=== PATIENT | male | born 1970 | race Caucasian/White ===

== ENCOUNTER 2022-09-03 18:12 | Inpatient (IN) | payer SELFPAY ==
[~2022-09-03 18:12] MED LIST: Iopamidol-370 76% 500 ML 1 ML ONE
[2022-09-03 19:04] LABS: Hemoglobin 5.6 g/dL (14.0-18.0); Mean Corpuscular HGB CONC 30.3 g/dL (32.0-36.0); Mean Corpuscular Hemoglobin 28.1 pg (27.0-31.0); Mean Corpuscular Volume 92.9 fl (78.0-98.0); RBC Distribution Width 17.2 % (11.5-14.5); Red Blood Cell (RBC) Count 1.99 mill/uL (4.70-6.10); White Blood Cell (WBC) Count 2.7 10x3/uL (4.8-10.8)
[2022-09-03 19:06] LABS: #Eosinphils 0.1 thou/uL (0.0-0.7); #Lymphocytes 0.6 thou/uL (1.20-3.40); #Monocytes 0.3 thou/uL (0.11-0.59); #Neutrophils 1.7 thou/uL (1.40-6.50); %Basophils 1.1 % (0.0-1.0); %Eosinophils 2.1 % (0.0-10.0); %Lymphocytes 22.4 % (21.0-51.0); %Monocytes 11.4 % (0.0-10.0); %Neutrophils 62.9 % (42.0-75.0)
[2022-09-03 19:08] LABS: Mean Platelet Volume 9.3 fL (7.4-10.4); Platelet Count 44 10x3/uL (130-400)
[2022-09-03 19:38] LABS: ALT (SGPT) 17 U/L (8-55); AST (SGOT) 24 U/L (5-34); Albumin 2.1 g/dL (3.5-5.0); Alkaline Phosphatase 106 U/L (40-110); Anion Gap 10 mmol/L (10-20); BUN (Urea Nitrogen) 13 mg/dL (8.9-20.6); Bilirubin, Total 1.7 mg/dL (0.2-1.2); Calc. Creatinine Clearance 0 mL/min (70-130); Calcium 7.8 mg/dL (7.8-10.44); Carbon Dioxide 22 mmol/L (22-29); Chloride 111 mmol/L (98-107); Estimated GFR 105; Globulin 4.2 g/dL (2.4-3.5); Glucose 116 mg/dL (70-105); Potassium 3.5 mmol/L (3.5-5.1); Protein, Total 6.3 g/dL (6.0-8.3); Sodium 139 mmol/L (136-145)
[2022-09-03] MEDS ORDERED: Octreotide Acetate 100 MCG/ML VIAL ONE (20:58)
[2022-09-03] MEDS ORDERED: Pantoprazole 40 MG VIAL ONE ×2 (20:58→22:07)
[2022-09-03] MEDS ORDERED: Furosemide 40 MG/4 ML VIAL ONE (20:58)
[2022-09-03] MEDS ORDERED: cefTRIAXone\\ROCEPHIN 1 GM VIAL ONE (20:58)
[2022-09-03] MEDS ORDERED: Octreotide Acetate 50 MCG in Sodium Chloride 0.9% 50 ML IVPB SCH (22:00)
[2022-09-03] MEDS ORDERED: Ondansetron PF 4 MG/2 ML Vial IVP PRN (22:13)
[2022-09-03] MEDS ORDERED: Furosemide 40 MG/4 ML VIAL SLOW IVP SCH (22:15)
[2022-09-03] MEDS ORDERED: Pantoprazole 80 MG in Sodium Chloride 0.9% 100 ML IVPB SCH (22:30)
[2022-09-03] MEDS ORDERED: Morphine 4 MG/ML VIAL ONE (22:35)
[2022-09-03 22:45] LABS: Hemoglobin 6.5 g/dL (14.0-18.0)
[2022-09-03 22:47] LABS: Bacteria/HPF None Seen HPF (None Seen); Bilirubin Negative (Negative); Blood, Urine 3+ (Negative); Clarity Clear (Clear); Glucose, Urine (Dipstick) Normal (Negative); Ketone, Urine Negative (Negative); Leukocyte Negative Leu/uL (Negative); Nitrite Negative (Negative); Protein, Urine (Dipstick) 20 mg/dL (Neg-Trace); RBC/HPF 21-50 HPF (0-3); Specific Gravity, Urine 1.024 (1.002-1.036); Squamous Epithelial 0-3 HPF (0-3)
[2022-09-03 22:56] LABS: INR-International Normal Ratio 1.3; PTT 36.7 sec (22.9-36.1); Prothrombin Time 17.2 sec (12.0-14.7)
[2022-09-03 23:01] LABS: Magnesium 1.6 mg/dL (1.6-2.6)
[2022-09-03 23:55] VITALS: BMI 37.1
[2022-09-04] MEDS: Albumin 25% 25 GM/100 ML BOT IVPB SCH ×4 (00:33→18:09)
[2022-09-04 01:15] LABS: Hemoglobin 6.7 g/dL (14.0-18.0)
[2022-09-04] MEDS: Octreotide Acetate 50 MCG in Sodium Chloride 0.9% 50 ML IVPB SCH ×2 (01:16→08:14)
[2022-09-04] MEDS ORDERED: Morphine 4 MG/ML VIAL SLOW IVP PRN (03:46)
[2022-09-04] MEDS: Furosemide 40 MG/4 ML VIAL SLOW IVP SCH ×2 (06:00→16:02)
[2022-09-04 07:37] LABS: #Lymphocytes 0.6 thou/uL (1.20-3.40); #Monocytes 0.2 thou/uL (0.11-0.59); %Basophils 1.8 % (0.0-1.0); %Eosinophils 2.2 % (0.0-10.0); %Lymphocytes 30.4 % (21.0-51.0); %Monocytes 12.5 % (0.0-10.0); %Neutrophils 53.2 % (42.0-75.0); Hemoglobin 6.4 g/dL (14.0-18.0); Mean Corpuscular HGB CONC 32.8 g/dL (32.0-36.0); Mean Corpuscular Hemoglobin 30.2 pg (27.0-31.0); Mean Corpuscular Volume 91.9 fl (78.0-98.0); Mean Platelet Volume 9.2 fL (7.4-10.4); Platelet Count 41 10x3/uL (130-400); RBC Distribution Width 16.1 % (11.5-14.5); Red Blood Cell (RBC) Count 2.13 mill/uL (4.70-6.10); White Blood Cell (WBC) Count 1.9 10x3/uL (4.8-10.8)
[2022-09-04 08:16] LABS: ALT (SGPT) 14 U/L (8-55); AST (SGOT) 24 U/L (5-34); Albumin 2.1 g/dL (3.5-5.0); Alkaline Phosphatase 86 U/L (40-110); Anion Gap 11 mmol/L (10-20); BUN (Urea Nitrogen) 11 mg/dL (8.9-20.6); Calc. Creatinine Clearance 176 mL/min (70-130); Calcium 7.5 mg/dL (7.8-10.44); Carbon Dioxide 23 mmol/L (22-29); Chloride 108 mmol/L (98-107); Estimated GFR 103; Globulin 3.7 g/dL (2.4-3.5); Glucose 75 mg/dL (70-105); Potassium 3.6 mmol/L (3.5-5.1); Protein, Total 5.8 g/dL (6.0-8.3); Sodium 138 mmol/L (136-145)
[2022-09-04 08:36] VITALS: BP 94/50
[2022-09-04] MEDS ORDERED: PROPOFOL 200 MG/20 ML VIAL ONE (09:47)
[2022-09-04] MEDS ORDERED: Lidocaine 1% PF 5 ML VIAL ONE (09:47)
[2022-09-04] MEDS ORDERED: Promethazine HCl 25 MG/ML VIAL IM PRN (10:07)
[2022-09-04] MEDS ORDERED: Electrolyte Replacement Protocol 1 EACH FS ONE (10:07)
[2022-09-04] MEDS ORDERED: Meperidine HCl/PF 25 MG/ML VIAL SLOW IVP PRN (10:07)
[2022-09-04] MEDS ORDERED: Morphine Sulfate 2 MG/ML SYRINGE SLOW IVP PRN (10:07)
[2022-09-04] MEDS ORDERED: Promethazine HCl 25 MG/ML VIAL IVPB PRN (10:07)
[2022-09-04] MEDS ORDERED: Ondansetron HCl/PF 4 MG/2 ML Vial IVP PRN (10:07)
[2022-09-04] MEDS ORDERED: Electrolyte Replacement Protocol FS PRN (10:30)
[2022-09-04] MEDS ORDERED: Octreotide Acetate 1,250 MCG in Sodium Chloride 0.9% 250 ML 250 ML IVPB SCH (10:30)
[2022-09-04] MEDS ORDERED: Morphine 2 MG/ML VIAL ONE (10:55)
[2022-09-04 11:44] LABS: Hemoglobin 6.7 g/dL (14.0-18.0)
[2022-09-04] MEDS ORDERED: Magnesium 2 GM/50 ML(in water) 2 GM in Premix Bag 1 BAG IVPB SCH (13:00)
[2022-09-04] MEDS ORDERED: Albumin 5% 0 ML ONE ×2 (13:04)
[2022-09-04 15:19] LABS: Fibrinogen 154 mg/dL (253-463)
[2022-09-04 15:20] LABS: INR-International Normal Ratio 1.5; PTT 38.4 sec (22.9-36.1); Prothrombin Time 18.7 sec (12.0-14.7)
[2022-09-04 15:27] LABS: D-Dimer Test 4.59 *mcg/mL (0.27-0.43)
[2022-09-04 15:30] LABS: Platelet Count 39 10x3/uL (130-400)
[2022-09-04 20:38] LABS: Hemoglobin 7.8 g/dL (14.0-18.0)
[2022-09-04] MEDS: cefTRIAXone\\ROCEPHIN 1 GM in Sodium Chloride 0.9% 100 ML IVPB SCH (22:31)
[2022-09-05 04:11] LABS: #Eosinphils 0.1 thou/uL (0.0-0.7); #Lymphocytes 0.5 thou/uL (1.20-3.40); #Monocytes 0.3 thou/uL (0.11-0.59); #Neutrophils 1.4 thou/uL (1.40-6.50); %Basophils 1.2 % (0.0-1.0); %Eosinophils 3.1 % (0.0-10.0); %Lymphocytes 21.1 % (21.0-51.0); %Monocytes 11.4 % (0.0-10.0); %Neutrophils 63.1 % (42.0-75.0); Hemoglobin 7.3 g/dL (14.0-18.0); Mean Corpuscular HGB CONC 32.7 g/dL (32.0-36.0); Mean Corpuscular Hemoglobin 30.2 pg (27.0-31.0); Mean Corpuscular Volume 92.6 fl (78.0-98.0); Mean Platelet Volume 9.7 fL (7.4-10.4); Platelet Count 35 10x3/uL (130-400); RBC Distribution Width 16.2 % (11.5-14.5); Red Blood Cell (RBC) Count 2.43 mill/uL (4.70-6.10); White Blood Cell (WBC) Count 2.2 10x3/uL (4.8-10.8)
[2022-09-05 04:28] LABS: Platelet Morphology Comment Appears Decreased
[2022-09-05 04:30] LABS: ALT (SGPT) 12 U/L (8-55); AST (SGOT) 23 U/L (5-34); Albumin 2.6 g/dL (3.5-5.0); Alkaline Phosphatase 90 U/L (40-110); Anion Gap 11 mmol/L (10-20); BUN (Urea Nitrogen) 11 mg/dL (8.9-20.6); Bilirubin, Total 2.6 mg/dL (0.2-1.2); Calc. Creatinine Clearance 154 mL/min (70-130); Calcium 7.9 mg/dL (7.8-10.44); Carbon Dioxide 26 mmol/L (22-29); Chloride 103 mmol/L (98-107); Estimated GFR 87; Globulin 3.7 g/dL (2.4-3.5); Glucose 113 mg/dL (70-105); Potassium 3.6 mmol/L (3.5-5.1); Protein, Total 6.3 g/dL (6.0-8.3); Sodium 136 mmol/L (136-145)
[2022-09-05] MEDS: Furosemide 40 MG/4 ML VIAL SLOW IVP SCH ×2 (05:27→13:29)
[2022-09-05] MEDS: Tamsulosin HCl 0.4 MG CAP PO SCH (08:57)
[2022-09-05] MEDS ORDERED: Pantoprazole 40 MG VIAL IVP SCH (09:00)
[2022-09-05 10:35] LABS: Reticulocyte Count 3.9 % (0.5-1.5)
[2022-09-05 10:45] LABS: Iron 74 ug/dL (65-175); Iron Binding Capacity, Total 224 mcg/dL (261-462)
[2022-09-05 11:06] LABS: Ferritin 51.38 ng/mL (22-322)
[2022-09-05] MEDS: Acetaminophen 325 MG TAB PO PRN (17:05)
[2022-09-05 20:25] LABS: Hemoglobin 7.5 g/dL (14.0-18.0)
[2022-09-05] MEDS: cefTRIAXone\\ROCEPHIN 1 GM in Sodium Chloride 0.9% 100 ML IVPB SCH (22:05)
[2022-09-06 02:00] LABS: #Lymphocytes 0.3 thou/uL (1.20-3.40); #Monocytes 0.2 thou/uL (0.11-0.59); #Neutrophils 1.6 thou/uL (1.40-6.50); %Basophils 0.4 % (0.0-1.0); %Eosinophils 1.7 % (0.0-10.0); %Lymphocytes 15.6 % (21.0-51.0); %Monocytes 8.9 % (0.0-10.0); %Neutrophils 73.3 % (42.0-75.0); Hemoglobin 7.4 g/dL (14.0-18.0); Mean Corpuscular HGB CONC 33.4 g/dL (32.0-36.0); Mean Corpuscular Hemoglobin 30.8 pg (27.0-31.0); Mean Corpuscular Volume 92.1 fl (78.0-98.0); Mean Platelet Volume 8.9 fL (7.4-10.4); Platelet Count 36 10x3/uL (130-400); RBC Distribution Width 16.3 % (11.5-14.5); Red Blood Cell (RBC) Count 2.39 mill/uL (4.70-6.10); White Blood Cell (WBC) Count 2.1 10x3/uL (4.8-10.8)
[2022-09-06 02:18] LABS: ALT (SGPT) 11 U/L (8-55); AST (SGOT) 25 U/L (5-34); Albumin 2.5 g/dL (3.5-5.0); Alkaline Phosphatase 85 U/L (40-110); Anion Gap 10 mmol/L (10-20); BUN (Urea Nitrogen) 15 mg/dL (8.9-20.6); Bilirubin, Total 2.3 mg/dL (0.2-1.2); Calc. Creatinine Clearance 141 mL/min (70-130); Calcium 7.7 mg/dL (7.8-10.44); Carbon Dioxide 26 mmol/L (22-29); Chloride 104 mmol/L (98-107); Estimated GFR 82; Globulin 3.8 g/dL (2.4-3.5); Glucose 122 mg/dL (70-105); Potassium 3.4 mmol/L (3.5-5.1); Protein, Total 6.3 g/dL (6.0-8.3); Sodium 137 mmol/L (136-145)
[2022-09-06] MEDS: Furosemide 40 MG/4 ML VIAL SLOW IVP SCH ×2 (05:00→12:35)
[2022-09-06] MEDS ORDERED: Potassium Bicarbonate/Cit Ac 20 MEQ TAB PO SCH (07:15)
[2022-09-06] MEDS: Acetaminophen 325 MG TAB PO PRN (07:43)
[2022-09-06] MEDS: Tamsulosin HCl 0.4 MG CAP PO SCH (07:45)
[2022-09-06 09:30] LABS: Hemoglobin 7.6 g/dL (14.0-18.0)
[2022-09-06 09:49] LABS: Magnesium 1.6 mg/dL (1.6-2.6)
[2022-09-06] MEDS ORDERED: Magnesium 2 GM/50 ML(in water) 2 GM in Premix Bag 1 BAG IVPB SCH (11:30)
[2022-09-06 12:30] LABS: Potassium 3.4 mmol/L (3.5-5.1)
[2022-09-06] MEDS ORDERED: Potassium Chloride 20 MEQ TAB PO SCH ×2 (13:30→17:15)
[2022-09-06] MEDS ORDERED: pyridOXINE 50 MG (B6) TAB PO SCH (21:00)
[2022-09-06] MEDS ORDERED: Cyanocobalamin (Vitamin B-12) 1,000 MCG TAB PO SCH (21:00)
[2022-09-06] MEDS ORDERED: Folic Acid 1 MG TAB PO SCH (21:00)
[2022-09-06] MEDS: cefTRIAXone\\ROCEPHIN 1 GM in Sodium Chloride 0.9% 100 ML IVPB SCH (22:06)
[2022-09-07 03:23] LABS: #Eosinphils 0.1 thou/uL (0.0-0.7); #Lymphocytes 0.4 thou/uL (1.20-3.40); #Monocytes 0.2 thou/uL (0.11-0.59); #Neutrophils 1.7 thou/uL (1.40-6.50); %Basophils 0.3 % (0.0-1.0); %Eosinophils 2.6 % (0.0-10.0); %Lymphocytes 18.1 % (21.0-51.0); %Monocytes 9.7 % (0.0-10.0); %Neutrophils 69.3 % (42.0-75.0); Hemoglobin 7.5 g/dL (14.0-18.0); Mean Corpuscular HGB CONC 31.6 g/dL (32.0-36.0); Mean Corpuscular Hemoglobin 29.2 pg (27.0-31.0); Mean Corpuscular Volume 92.4 fl (78.0-98.0); Platelet Count 43 10x3/uL (130-400); RBC Distribution Width 17.2 % (11.5-14.5); Red Blood Cell (RBC) Count 2.56 mill/uL (4.70-6.10); White Blood Cell (WBC) Count 2.4 10x3/uL (4.8-10.8)
[2022-09-07 03:46] LABS: ALT (SGPT) 11 U/L (8-55); AST (SGOT) 25 U/L (5-34); Albumin 2.4 g/dL (3.5-5.0); Alkaline Phosphatase 82 U/L (40-110); Anion Gap 10 mmol/L (10-20); BUN (Urea Nitrogen) 19 mg/dL (8.9-20.6); Bilirubin, Total 1.9 mg/dL (0.2-1.2); Calc. Creatinine Clearance 170 mL/min (70-130); Calcium 7.9 mg/dL (7.8-10.44); Carbon Dioxide 25 mmol/L (22-29); Chloride 105 mmol/L (98-107); Estimated GFR 104; Glucose 85 mg/dL (70-105); Magnesium 1.9 mg/dL (1.6-2.6); Potassium 3.8 mmol/L (3.5-5.1); Protein, Total 6.4 g/dL (6.0-8.3); Sodium 136 mmol/L (136-145)
[2022-09-07] MEDS: Furosemide 40 MG/4 ML VIAL SLOW IVP SCH ×2 (06:08→16:10)
[2022-09-07] MEDS ORDERED: Magnesium 2 GM/50 ML(in water) 2 GM in Premix Bag 1 BAG IVPB SCH (07:00)
[2022-09-07] MEDS: Tamsulosin HCl 0.4 MG CAP PO SCH (08:26)
[2022-09-07] MEDS ORDERED: Multivit, Therapeutic 1 TAB PO SCH (09:00)
[2022-09-07 16:26] VITALS: TEMP 98.3
== END 2022-09-07 18:15 | disposition home or self-care (01) | DRG 432 ==
LOC: ERS 18:12 → T4-A 21:05 → CCU 09-04 09:02 → IMCU/EMU 09-04 14:33
PROVIDERS: ADMIT Internal Medicine; ATTEND Internal Medicine
PROC: 30233N1 Transfusion of Nonautologous Red Blood Cells into Peripheral Vein, Percutaneous Approach (ICD-10-PCS; principal; 2022-09-03)
PROC: 0DJ08ZZ Inspection of Upper Intestinal Tract, Via Natural or Artificial Opening Endoscopic (ICD-10-PCS; 2022-09-04)
PROC: 8E0ZXY6 Isolation (ICD-10-PCS; 2022-09-04)
DX: K70.31 Alcoholic cirrhosis of liver with ascites (principal); U07.1 COVID-19; D61.818 Other pancytopenia; K76.6 Portal hypertension; D68.4 Acquired coagulation factor deficiency; K21.00 Gastro-esophageal reflux disease with esophagitis, without bleeding; K31.89 Other diseases of stomach and duodenum; E87.70 Fluid overload, unspecified; E83.42 Hypomagnesemia; E87.6 Hypokalemia; N20.0 Calculus of kidney; F10.20 Alcohol dependence, uncomplicated; K31.819 Angiodysplasia of stomach and duodenum without bleeding; N43.3 Hydrocele, unspecified; E66.01 Morbid (severe) obesity due to excess calories; Q63.1 Lobulated, fused and horseshoe kidney; Z68.34 Body mass index [BMI] 34.0-34.9, adult
CPT/HCPCS: 36415; 36430; 74176; 74177; 76705; 76870; 80053; 81003; 81015; 82248; 82607; 82728; 83010; 83540; 83550; 83615; 83735; 83880; 84443; 84484; 85014; 85018; 85025; 85046; 85049; 85300; 85362; 85379; 85384; 85610; 85730; 86850; 86900; 86901; 87040; 87086; 93005; 93976; 94760; 96374; 96375; C9113; J0696; J1940; J2270; J2354; J2704; J3475; J3490; P9016; P9045; P9047; Q9967; U0003; U0005